=== PATIENT | male | born 1975 | race Two or more races ===

== ENCOUNTER 2021-12-11 13:39 | Inpatient (IN) | payer OTHER ==
[~2021-12-11] VITALS: Ht 175.3 cm; Wt 115.0 kg
[2021-12-11 14:09] LABS: Basophils # (auto) 0.1 10 ^3/uL (0-0.2); Eosinophils # (auto) 0.2 10 ^3/uL (0-0.8); Eosinophils % (auto) 3.2 % (0.0-7.0); Hematocrit 41.5 % (41.0-53.0); Hemoglobin 14.2 g/dL (13.5-17.5); Lymphocytes # (auto) 1.7 10 ^3/uL (0.4-5.4); Lymphocytes % (auto) 22.1 % (10.0-50.0); Mean Corpuscular Hemoglobin 27.9 pg (28.0-32.0); Mean Corpuscular Hgb Conc. 34.3 g/dL (32.0-36.0); Mean Corpuscular Volume 81.4 fL (80.0-100.0); Monocytes # (auto) 0.5 10 ^3/uL (0-1.3); Monocytes % (auto) 6.1 % (0.0-12.0); Neutrophils # (auto) 5.1 10 ^3/uL (1.6-8.6); Neutrophils % (auto) 67.6 % (37.0-80.0); Nucleated Red Blood Cells % 0.1 %; White Blood Cell 7.5 10^3/uL (4.4-10.8)
[2021-12-11 14:27] LABS: Albumin 3.7 g/dL (3.4-5.0); Calcium 8.8 mg/dL (8.5-10.1)
[2021-12-11 14:31] LABS: BUN/Creatinine Ratio 19.8; Bilirubin, Total 0.6 mg/dL (0.2-1.0); Total Protein 7.1 g/dL (6.4-8.2)
[2021-12-11] MEDS ORDERED: hydrALAZINE HCL 20 MG/ML VL IV ONE (15:45)
[2021-12-11] MEDS ORDERED: ASPirin 81 mg TAB PO ONE (15:45)
[2021-12-11] MEDS ORDERED: NITROGLYCERIN 0.4 MG SL TAB SL PRN (16:45)
[2021-12-11] MEDS ORDERED: MORPHINE SULFATE INJ 2 MG/ml SYRG IV PRN (16:45)
[2021-12-11] MEDS ORDERED: ATOR40TA52 PO (16:59)
[2021-12-11] MEDS ORDERED: HYDR25TA5 PO (16:59)
[2021-12-11] MEDS ORDERED: CLOP75TA70 PO (16:59)
[2021-12-11] MEDS ORDERED: RAMI10CA38 PO (16:59)
[2021-12-11] MEDS ORDERED: CARV25TA55 PO (16:59)
[2021-12-11] MEDS: InsuLIN REG 1unit/0.01ml Soln (100units/ml) SC SCH ×2 (17:00→23:02)
[2021-12-11] MEDS ORDERED: DEXTROSE (50%) 50ML SYRG IV PRN (17:00)
[2021-12-11] MEDS ORDERED: hydrALAZINE HCL 20 MG/ML VL IV PRN (17:00)
[2021-12-11] MEDS: ACCU-CHEK COMFORT CURVE STRIP VI SCH ×2 (17:00→23:03)
[2021-12-11] MEDS ORDERED: FUROSEMIDE 20 MG/2 ML VIAL IV ONE (17:15)
[2021-12-11 17:52] LABS: Cholesterol 171 mg/dL (< 200)
[2021-12-11 17:55] LABS: HDL Cholesterol 47 mg/dL (40-59); LDL Cholesterol 109 mg/dL (< 100); Triglycerides 94 mg/dL (< 150)
[2021-12-11 18:51] LABS: Urine Bacteria NONE SEEN /hpf (None Seen); Urine Blood Negative /uL (Negative); Urine Specific Gravity 1.015 (1.001-1.035); Urine WBC <1 /hpf (0 - 3)
[2021-12-11 19:08] LABS: Alcohol, Urine < 3.0 mg/dL (0-10); Amphetamine Screen, Urine NEGATIVE (NEGATIVE); Barbiturate Scree,Urine NEGATIVE (NEGATIVE); Benzodiazephine Screen, Urine NEGATIVE (NEGATIVE); Cannabinoid Screen, Urine NEGATIVE (NEGATIVE); Cocaine Screen, Urine NEGATIVE (NEGATIVE); Opiate Scree,Urine NEGATIVE (NEGATIVE); Phencyclidine Screen, Urine NEGATIVE (NEGATIVE)
[2021-12-11] MEDS: ACETAMINOPHEN 325 MG TAB PO PRN (23:04)
[2021-12-12 00:05] VITALS: BP 145/88
[2021-12-12 05:00] VITALS: BP 164/97
[2021-12-12 06:05] LABS: Basophils # (auto) 0.1 10 ^3/uL (0-0.2); Basophils % (auto) 0.9 % (0.0-2.0); Eosinophils # (auto) 0.2 10 ^3/uL (0-0.8); Eosinophils % (auto) 3.4 % (0.0-7.0); Hematocrit 40.4 % (41.0-53.0); Hemoglobin 14.1 g/dL (13.5-17.5); Lymphocytes # (auto) 1.7 10 ^3/uL (0.4-5.4); Lymphocytes % (auto) 24.7 % (10.0-50.0); Mean Corpuscular Hemoglobin 27.9 pg (28.0-32.0); Mean Corpuscular Hgb Conc. 34.9 g/dL (32.0-36.0); Monocytes # (auto) 0.6 10 ^3/uL (0-1.3); Monocytes % (auto) 8.6 % (0.0-12.0); Neutrophils # (auto) 4.2 10 ^3/uL (1.6-8.6); Neutrophils % (auto) 62.4 % (37.0-80.0); Nucleated Red Blood Cells % 0.1 %; Red Blood Cells 5.05 10^6/uL (4.5-5.90); Red Cell Distribution Width 14.9 % (11.8-14.3); White Blood Cell 6.7 10^3/uL (4.4-10.8)
[2021-12-12 06:18] LABS: Albumin 3.2 g/dL (3.4-5.0); BUN/Creatinine Ratio 17.8; Calcium 8.6 mg/dL (8.5-10.1); Potassium 3.6 mmol/L (3.5-5.1)
[2021-12-12 06:21] LABS: Bilirubin, Total 0.4 mg/dL (0.2-1.0); Total Protein 6.8 g/dL (6.4-8.2)
[2021-12-12] MEDS: ACCU-CHEK COMFORT CURVE STRIP VI SCH ×4 (06:32→22:36)
[2021-12-12] MEDS: InsuLIN REG 1unit/0.01ml Soln (100units/ml) SC SCH ×4 (06:33→22:00)
[2021-12-12 09:00] VITALS: BP 163/104
[2021-12-12] MEDS: NICOTINE 7MG/24HR TOPICAL PATCH TD SCH (10:00)
[2021-12-12 13:00] VITALS: BP 182/103
[2021-12-12] MEDS ORDERED: HCTZ 25 MG TAB PO ONE (15:15)
[2021-12-12] MEDS ORDERED: RAMIPRIL 10 MG CAP PO ONE (15:15)
[2021-12-12] MEDS ORDERED: CARVEDILOL 12.5 MG TAB PO ONE (15:15)
[2021-12-12 17:05] VITALS: BP 193/108
[2021-12-12 22:00] VITALS: BP 143/78
[2021-12-12] MEDS: CARVEDILOL 12.5 MG TAB PO SCH (22:36)
[2021-12-13 05:21] VITALS: BP 145/81
[2021-12-13] MEDS: ACCU-CHEK COMFORT CURVE STRIP VI SCH ×4 (06:34→22:14)
[2021-12-13] MEDS: InsuLIN REG 1unit/0.01ml Soln (100units/ml) SC SCH ×4 (06:35→22:00)
[2021-12-13 09:00] VITALS: BP 124/91
[2021-12-13] MEDS: CARVEDILOL 12.5 MG TAB PO SCH ×2 (09:01→22:10)
[2021-12-13] MEDS: ACETAMINOPHEN 325 MG TAB PO PRN (09:02)
[2021-12-13] MEDS: NICOTINE 7MG/24HR TOPICAL PATCH TD SCH (09:03)
[2021-12-13] MEDS ORDERED: HCTZ 25 MG TAB PO SCH (10:00)
[2021-12-13] MEDS ORDERED: ASPirin 81 mg TAB PO ONE (10:30)
[2021-12-13] MEDS ORDERED: CLOPIDOGREL BISULFATE 75 MG TAB PO ONE (10:30)
[2021-12-13] MEDS ORDERED: PANTOPRAZOLE 40 MG TAB PO ONE (10:30)
[2021-12-13] MEDS ORDERED: ENOXAPARIN SOD 100 MG/1 ML SYRINGE SC ONE (10:30)
[2021-12-13] MEDS: RAMIPRIL 10 MG CAP PO SCH (11:29)
[2021-12-13 13:00] VITALS: BP 159/90
[2021-12-13 13:59] VITALS: BP 124/94
[2021-12-13] MEDS ORDERED: SPIRONOLACTONE 25 MG TAB PO ONE (15:00)
[2021-12-13 17:00] VITALS: BP 156/90
[2021-12-13 22:00] VITALS: BP 166/91
[2021-12-13] MEDS: ENOXAPARIN SOD 100 MG/1 ML SYRINGE SC SCH (22:00)
[2021-12-14 05:00] VITALS: BP 153/90
[2021-12-14] MEDS ORDERED: SPIRONOLACTONE 25 MG TAB PO SCH (06:00)
[2021-12-14] MEDS: ACCU-CHEK COMFORT CURVE STRIP VI SCH ×2 (06:28→11:30)
[2021-12-14] MEDS: InsuLIN REG 1unit/0.01ml Soln (100units/ml) SC SCH ×2 (06:32→11:30)
[2021-12-14 08:51] VITALS: BP 158/86
[2021-12-14] MEDS: CARVEDILOL 12.5 MG TAB PO SCH (09:37)
[2021-12-14] MEDS: ENOXAPARIN SOD 100 MG/1 ML SYRINGE SC SCH (09:38)
[2021-12-14] MEDS: NICOTINE 7MG/24HR TOPICAL PATCH TD SCH (10:00)
[2021-12-14] MEDS ORDERED: PANTOPRAZOLE 40 MG TAB PO SCH (10:00)
[2021-12-14] MEDS ORDERED: DAPAGLIFLOZIN 5 MG TAB PO SCH (10:00)
[2021-12-14] MEDS ORDERED: ASPirin 81 mg TAB PO SCH (10:00)
[2021-12-14] MEDS ORDERED: FUROSEMIDE 40 MG TAB PO SCH (10:00)
[2021-12-14] MEDS ORDERED: CLOPIDOGREL BISULFATE 75 MG TAB PO SCH (10:00)
[2021-12-14] MEDS: RAMIPRIL 10 MG CAP PO SCH (11:48)
[2021-12-14] MEDS ORDERED: CARV25TA55 PO (11:55)
[2021-12-14] MEDS ORDERED: SPIR25TA PO (11:55)
[2021-12-14] MEDS ORDERED: CLOP75TA70 PO (11:55)
[2021-12-14] MEDS ORDERED: RAM10T PO (11:55)
[2021-12-14] MEDS ORDERED: FURO40TA4 PO (11:55)
[2021-12-14] MEDS ORDERED: METF-370 PO (11:55)
[2021-12-14] MEDS ORDERED: ATOR40TA52 PO (11:55)
[2021-12-14 12:05] VITALS: BP 147/88
[2021-12-14 14:00] VITALS: BP 147/88
[2021-12-14 14:12] VITALS: BP 147/88
[2021-12-14] MEDS ORDERED: metFORMIN HYDROCHLORIDE 500 MG TAB PO SCH (18:00)
== END 2021-12-14 14:53 | disposition home or self-care (01) | DRG 190 ==
LOC: ER 13:39 → TELE 16:50 → TELE-CENTR 22:13
PROVIDERS: ADMIT Registered Nurse; ATTEND Student in an Organized Health Care Education/Training Program
DX: I25.10 Atherosclerotic heart disease of native coronary artery without angina pectoris (principal); I21.A1 Myocardial infarction type 2; E11.9 Type 2 diabetes mellitus without complications; I16.0 Hypertensive urgency; I24.9 Acute ischemic heart disease, unspecified; E78.5 Hyperlipidemia, unspecified; I10 Essential (primary) hypertension; Z20.822 Contact with and (suspected) exposure to COVID-19; I25.5 Ischemic cardiomyopathy; I16.9 Hypertensive crisis, unspecified; E66.01 Morbid (severe) obesity due to excess calories; Z68.36 Body mass index [BMI] 36.0-36.9, adult; Z90.49 Acquired absence of other specified parts of digestive tract; Z72.0 Tobacco use; Z71.6 Tobacco abuse counseling
CPT/HCPCS: 36415; 71045; 80053; 80061; 80307; 80320; 81001; 82962; 83036; 83880; 84484; 85025; 85379; 87426; 93005; 93306; 96374; 96375; G0378